=== PATIENT | male | born 1990 | race Caucasian/White ===

== ENCOUNTER 2024-06-01 13:16 | Outpatient (CLI) | payer BC ==
[2024-06-01 14:21] LABS: #Basophils 0.07 10x3/uL (0.0-0.2); #Eosinphils 0.27 10x3/uL (0.0-0.5); #Monocytes 0.73 10x3/uL (0.0-1.1); #Neutrophils 5.61 10x3/uL (1.5-8.4); %Basophils 0.7 % (0.0-2.0); %Eosinophils 2.8 % (0.0-6.0); %Lymphocytes 30.7 % (18.0-47.0); %Monocytes 7.5 % (0.0-10.0); %Neutrophils 58.1 % (40.0-75.0); Hematocrit 44.9 % (38.8-50.0); Hemoglobin 16.2 g/dL (13.5-17.5); Mean Corpuscular HGB CONC 36.1 g/dL (32.0-36.0); Mean Corpuscular Hemoglobin 31.9 pg (27.0-33.0); Mean Corpuscular Volume 88.4 fL (81.2-95.1); Mean Platelet Volume 10.2 fL (7.4-10.4); Platelet Count 325 10x3/uL (150-450); RBC Distribution Width 13.2 % (11.5-14.5); Red Blood Cell (RBC) Count 5.08 10x6/uL (4.32-5.72); White Blood Cell (WBC) Count 9.7 10x3/uL (3.5-10.5)
[2024-06-01 14:34] LABS: Anion Gap 14 mmol/L (10-20); BUN (Urea Nitrogen) 16 mg/dL (8.9-20.6); Calc. Creatinine Clearance 0 mL/min (70-130); Calcium 10.2 mg/dL (7.8-10.44); Carbon Dioxide 24 mmol/L (22-29); Chloride 106 mmol/L (98-107); Estimated GFR 78; Glucose 104 mg/dL (70-105); Potassium 4.1 mmol/L (3.5-5.1); Sodium 140 mmol/L (136-145)
== END 2024-06-01 13:17 | disposition home or self-care (01) ==
LOC: CSHLAB 13:16
PROVIDERS: ATTEND Specialist
DX: Z01.812 Encounter for preprocedural laboratory examination (principal); K43.2 Incisional hernia without obstruction or gangrene
CPT/HCPCS: 80048; 85025

== ENCOUNTER 2024-07-09 08:31 | Day surgery (SDC) | payer BC ==
[2024-07-08 11:33] VITALS: BMI 34.2
[2024-07-09] MEDS ORDERED: Ketorolac Tromethamine 30 MG (1 mL) VIAL ONE (08:48)
[2024-07-09] MEDS ORDERED: Acetaminophen 500 MG TAB ONE (08:48)
[2024-07-09] MEDS ORDERED: PROPOFOL 0 ML ONE (10:01)
[2024-07-09] MEDS ORDERED: Sevoflurane 250 ML INH ANEST BOTTLE ONE (10:02)
[2024-07-09] MEDS ORDERED: Bupivacaine/Epinephrine 0.25% 30 ML VIAL ONE (10:02)
[2024-07-09] MEDS ORDERED: fentaNYL 50 mcg/mL 1 mL Vial ONE ×6 (10:04→13:12)
[2024-07-09] MEDS ORDERED: CEFAZOLIN 2 GM VIAL ONE (10:08)
[2024-07-09] MEDS ORDERED: Dexamethasone 4 mg/ml Vial ONE (10:31)
[2024-07-09] MEDS ORDERED: Ondansetron PF 4 MG/2 ML Vial ONE (10:31)
[2024-07-09] MEDS ORDERED: Dexmedetomidine 200 MCG/2 ML VIAL ONE (10:32)
[2024-07-09] MEDS ORDERED: Glycopyrrolate 0.2 MG/ML 5 ML SYRINGE ONE (10:44)
[2024-07-09] MEDS ORDERED: Lidocaine 4% PF 5 ML AMP ONE (11:27)
[2024-07-09] MEDS ORDERED: Lidocaine 2% PF 5 ML VIAL ONE (11:27)
[2024-07-09] MEDS ORDERED: PROPOFOL 20 ML ONE (11:28)
[2024-07-09] MEDS ORDERED: SUGAMMADEX SODIUM 200 MG/2 ML VIAL ONE (11:37)
[2024-07-09] MEDS ORDERED: HYDROcodone/Acetaminophen 5/325 mg Tablet ONE ×2 (13:30→14:30)
== END 2024-07-09 15:00 | disposition home or self-care (01) ==
LOC: CSHSDC 08:31
PROVIDERS: ATTEND Specialist
PROC: 0WUF4JZ Supplement Abdominal Wall with Synthetic Substitute, Percutaneous Endoscopic Approach (ICD-10-PCS; principal; 2024-07-09)
DX: K43.2 Incisional hernia without obstruction or gangrene (principal); E66.9 Obesity, unspecified; Z68.34 Body mass index [BMI] 34.0-34.9, adult
CPT/HCPCS: C1781; J1100; J1885; J2405; J2704; J3010; S2900